=== PATIENT | female | born 1980 | race Two or more races ===

== ENCOUNTER 2020-08-11 18:52 | Emergency (ER) | payer MEDICAID ==
[~2020-08-11] VITALS: Ht 154.9 cm; Wt 71.7 kg
--- NOTE | 2020-08-11 19:10 | NUR ---
ANTON FROM HOME TO ER BED 6. AAOX4. NOT IN RESP DISTRESS. AMBULATORY. BROUGHT IN FOR SUICIDAL IDEATIONS W/ ATTEMP PER REPORTED. ACCORDING TO PT, SHE SAW SOMETHING IN FACEBOOK THAT MADE HER UPSET AND SINCE THEN SHE HAS BEEN FEELING SUICIDAL. UPON ASSESSMENT, NO NOTED MARKINGS AROUND THE NECK. AT BEDSIDE. MD WAS AT THE BEDSIDE FOR EVAL. ORDERS RECEIVED NOTED AND CARRIED OUT
--- NOTE | 2020-08-11 20:12 | NUR ---
CALLED FOR COVID SWAB
--- NOTE | 2020-08-11 20:25 | NUR ---
COVID SWABBED, SENT TO LAB
[2020-08-11 20:40] LABS: BASOPHILS % (AUTO) 0.3 % (0.0-2.0); EOSINOPHILS % (AUTO) 0.1 % (0.0-6.0); HEMATOCRIT 39 % (33-45); HEMOGLOBIN 12.3 g/dL (11.5-14.8); LYMPHOCYTES % (AUTO) 24.4 % (20.0-44.0); MEAN CORPUSCULAR HGB CONC 31 g/dl (31.0-36.0); MEAN CORPUSCULAR VOLUME 80 fL (82-100); MONOCYTES # (AUTO) 0.5 /CMM (0.1-1.30); MONOCYTES % (AUTO) 4.4 % (2.0-12.0); NEUTROPHILS # (AUTO) 8.6 /CMM (1.8-8.9); NEUTROPHILS % (AUTO) 70.8 % (43.0-81.0); PLATELET COUNT (AUTO) 395 /CMM (150-450); RED BLOOD CELL COUNT(AUTO) 4.92 MIL/uL (4.0-5.2); WHITE BLOOD COUNT (AUTO) 12.2 K/uL (4.3-11.0)
[2020-08-11 21:08] LABS: APPEARANCE,URINE CLEAR (CLEAR); BILIRUBIN,URINE NEGATIVE (NEGATIVE); BLOOD, URINE NEGATIVE Ery/uL (NEGATIVE); COLOR,URINE YELLOW (YELLOW); KETONES,URINE NEGATIVE (NEGATIVE); LEUKOCYTE ESTERASE ,URINE NEGATIVE (NEGATIVE); NITRITE, URINE POSITIVE (NEGATIVE); PROTEIN,URINE NEGATIVE (NEGATIVE); UGLUCOSE NEGATIVE (NEGATIVE)
[2020-08-11 21:20] LABS: ALANINE AMINOTRANSFERASE 23 U/L (12-78); ALBUMIN 3.9 g/dL (3.4-5.0); ALCOHOL, BLOOD < 3 mg/dL (0-0); ALKALINE PHOSPHATASE 68 U/L (46-116); ASPARTATE AMINOTRANSFERASE 20 U/L (15-37); BILIRUBIN,DIRECT 0.1 mg/dL (0.0-0.2); BILIRUBIN,TOTAL 0.4 mg/dL (0.2-1.0); CALCIUM, SERUM 9.5 mg/dL (8.5-10.1); CARBON DIOXIDE 25 mmol/L (21-32); CHLORIDE 100 mmol/L (98-107); CREATININE 0.7 mg/dL (0.6-1.3); GLUCOSE 111 mg/dL (74-106); POTASSIUM 4.4 mmol/L (3.5-5.1); SODIUM SERUM 136 mmol/L (136-145); TOTAL PROTEIN, SERUM 8.5 g/dL (6.4-8.2); UREA NITROGEN, BLOOD 9 mg/dL (7-18)
[2020-08-11 21:21] LABS: ACETAMINOPHEN < 2 ug/ml (10-30)
[2020-08-11 21:32] LABS: BACTERIA,URINE 1+ /HPF (None Seen); COARSE GRANULAR CASTS,URINE Few /LPF (None Seen); RBC,URINE 0-2 /HPF (0-2); SQUAMOUS EPITHELIAL CELL,UR Few /HPF (None Seen); WBC,URINE 0-2 /HPF (0-3)
--- NOTE | 2020-08-11 21:54 | NUR ---
COVID NEG PER LAB
--- NOTE | 2020-08-11 21:56 | NUR ---
Patient discharged to home in stable condition. Written and verbal after care instructions given. Patient verbalizes understanding of instruction. Pt ambulatory with a steady gait
--- NOTE | 2020-08-11 21:58 | NUR ---
PT LEFT WITH HER .
[2020-08-11 22:05] VITALS: BP 135/81
== END 2020-08-11 22:05 | disposition home or self-care (01) ==
LOC: ER 19:00
DX: F32.9 Major depressive disorder, single episode, unspecified (principal); R45.851 Suicidal ideations; Z20.828 Contact with and (suspected) exposure to other viral communicable diseases
CPT/HCPCS: 36415; 80048; 80076; 80299; 80307; 80320; 81001; 84703; 85025; 87086; 87426; 99285; C9803; 81000-TC; G0480

== ENCOUNTER 2022-09-16 15:29 | Emergency (ER) | payer MEDICAID ==
[~2022-09-16] VITALS: Ht 152.4 cm; Wt 68.5 kg
[2022-09-16 16:16] VITALS: BP 125/71
--- NOTE | 2022-09-16 17:21 | NUR ---
CALLED TO TRIAGE,NO ANSWER
--- NOTE | 2022-09-16 17:54 | NUR ---
TO ER CHAIR,NO APPARENT CHANGE IN CONDITION
[2022-09-16] MEDS ORDERED: CYCL10TA9 PO (19:49)
[2022-09-16] MEDS ORDERED: ACET-2605 PO (19:49)
[2022-09-16] MEDS ORDERED: NAPR-1009 PO (19:49)
[2022-09-16] MEDS ORDERED: ACETAMINOPHEN ES 500 MG TABLET ONE (19:58)
[2022-09-16] MEDS ORDERED: ACETAMINOPHEN ES 500 MG TABLET PO ONE (20:00)
--- NOTE | 2022-09-16 20:02 | NUR ---
Patient discharged to home in stable condition. Written and verbal after care instructions given. Patient verbalizes understanding of instruction.
== END 2022-09-16 20:03 | disposition home or self-care (01) ==
LOC: ER 15:31
DX: M25.521 Pain in right elbow (principal); E11.9 Type 2 diabetes mellitus without complications